=== PATIENT | male | born 1980 | race Caucasian/White ===

== ENCOUNTER 2021-11-19 05:31 | Emergency (ER) | payer MEDICAID ==
[~2021-11-19] VITALS: Ht 170.2 cm; Wt 82.0 kg
[2021-11-19] MEDS ORDERED: MORPHINE SULFATE 4 MG/ML CPJ (NOT FOR IM USE) IV STA (07:03)
[2021-11-19] MEDS ORDERED: ONDANSETRON HCL 4MG/2ML INJ IV STA (07:03)
[2021-11-19 08:41] LABS: HEMATOCRIT. 40.8 % (42.0-52.0); HEMOGLOBIN. 13.8 g/dL (14.0-18.0); MEAN CORPUSCULAR HEMOGLOBIN 30.2 pg (28.0-32.0); MEAN CORPUSCULAR VOLUME 89.2 fL (80.0-94.0); MEAN PLATELET VOLUME 8.5 fl (7.4-10.4); PLATELET 265 x1000/uL (130-400); RED BLOOD CELL COUNT 4.57 mill/uL (4.7-6.1); RED CELL DISTRIBUTION WIDTH 14.4 % (11.6-14.6)
[2021-11-19 08:42] LABS: BASOPHILS % 0.3 % (0.0-2.0); EOSINOPHILS % 4.2 % (0.0-5.0); MONOCYTES % 7.1 % (2.0-8.0); NEUTROPHILS % 58.4 % (40.0-76.0)
[2021-11-19 08:51] LABS: CHLORIDE 107 mEq/L (98-107)
[2021-11-19 08:52] LABS: PROTHROMBIN TIME 10.6 sec (9.6-11.0)
[2021-11-19] MEDS ORDERED: DICYCLOMINE 10 MG/5 ML ORAL SYR PO STA (10:02)
[2021-11-19] MEDS ORDERED: VISCOUS LIDOCAINE 2% 15 ML UDC PO STA (10:02)
[2021-11-19] MEDS ORDERED: MAGNESIUM/ALUMINUM HYDROXIDE/SIMETHICONE 30ML UDC PO STA (10:02)
[2021-11-19] MEDS ORDERED: TOPUD PO (10:14)
[2021-11-19] MEDS ORDERED: LOPE2CAP PO (10:14)
[2021-11-19 11:01] LABS: CLARITY URINE CLEAR (CLEAR); COLOR URINE YELLOW (YELLOW); KETONES URINE TRACE (NEGATIVE); LEUKOCYTE ESTERASE URINE NEGATIVE (NEGATIVE); NITRITE URINE NEGATIVE (NEGATIVE); OCCULT BLOOD URINE NEGATIVE (NEGATIVE); PH URINE 5.5 (4.5-8.0); PROTEIN URINE NEGATIVE (NEGATIVE); SPECIFIC GRAVITY URINE 1.022 (1.005-1.030)
[2021-11-19 11:18] VITALS: BP 111/78
== END 2021-11-19 11:25 | disposition home or self-care (01) ==
LOC: ER 05:31
DX: K52.9 Noninfective gastroenteritis and colitis, unspecified (principal)
CPT/HCPCS: 36415; 74176; 80053; 81003; 83690; 85025; 85610; 96374; 96375; 99284; J2270; J2405